=== PATIENT | male | born 1980 | race African-American/Black ===

== ENCOUNTER 2016-07-01 22:44 | Emergency (ER) | payer OTHER ==
--- NOTE | ~2016-07-01 | CR281 ---
[facility] A Service of [facility] & [facility] / [facility] RADIOLOGY TEXT RESULTS PATIENT: BEKAH MOREL JR LOCATION: [facility] : [birth year] UNIT #: [id number] AGE: [address]: Matheus De Oliveira MD SEX: M ORDER DR: [id number] [facility] [address] [place], [place] [address] [id number] E MR#: [id number] Acc #: [id number] NAME: BEKAH MOREL JR : 1980 SEX: M STUDY DATE/TIME: 07/01/2016 22:10 UNIT: [facility] ROOM: STUDY DESCRIPTION: CR Wrist Min 3 View Lt Attending Physician: Matheus De Oliveira M.D. Ordering Physician: Matheus De Oliveira M.D. Primary Care Physician: Sonia Jimenez M.D. MEDICAL IMAGING REPORT This report is preliminary unless electronic signature is present EXAM Left wrist 3 views, 07/01/2016 HISTORY Medial wrist pain and swelling for 3 days after fall playing basketball. FINDINGS Wrist evaluation in multiple projections shows normal mineralization of the bony structures about the wrist and satisfactory articular relationship of the radius and ulna to the proximal carpal row and of the distal carpal segments to the metacarpal bases. There is no indication of fracture or dislocation, and no soft tissue radiopaque foreign body is present. No congenital defects are apparent. IMPRESSION Normal wrist. Dictated by... Chris Kruger M.D. THIS IS AN ELECTRONICALLY VERIFIED REPORT Chris Kruger M.D. at 07/02/2016 10:57 PM ERUM/swetha TD: 07/02/2016 02:04 JOB #: [id number] MEDICAL IMAGING REPORT Page 1 of 1 COPY
[~2016-07-01 22:44] MED LIST: DICLOFENAC PO; FLEXERIL PO; LORTAB 5/500 TA1 TA1 PO; OMEPRAZOLE20 M1 PO; PHENERGAN25 MG PO; ULTRAM PO; VITAMIN D1000 UNIT PO
== END 2016-07-01 23:02 | disposition home or self-care (01) ==
LOC: CED 22:44
DX: S63.512A Sprain of carpal joint of left wrist, initial encounter (principal); F17.200 Nicotine dependence, unspecified, uncomplicated; J45.909 Unspecified asthma, uncomplicated; W19.XXXA Unspecified fall, initial encounter; Y93.67 Activity, basketball; Y92.830 Public park as the place of occurrence of the external cause
CPT/HCPCS: 73110; 99283